=== PATIENT | male | born 1970 | race Caucasian/White ===

== ENCOUNTER 2023-04-24 20:22 | Emergency (ER) | payer OTHER, SELFPAY ==
[2023-04-24 20:23] VITALS: BP 150/90
--- NOTE | 2023-04-24 23:36 | ED.SKININJ ---
HPI-Injury
General
Chief Complaint: Head Injury
Source: patient
Exam Limitations: none
Time Seen by Provider: 04/24/23 20:48
Nursing documentation reviewed up to this point in time: agreed with
Travel History
Have you had any contact with someone who has COVID-19?: No
Do you have any symptoms of coronavirus? Fever > 100 degrees, chills, cough, shortness of breath, sore throat, loss of taste or smell, muscle aches, or headache?: No
History of Present Illness-Injury
Initial Injury comments:
Patient states he was attempting to hang up a clamp in his basement. Clamp fell and hit him on the left side of his forehead. No LOC. Sustained small lac to site. Injury occurred tonight. Brought self to ED for eval.
Past History
Past History
ED Past Medical History: None
ED Past Surgical History: None
Social History
Tobacco: Non-smoker
Alcohol: None
Drug: None
Living: with family
Review of Systems
Review of Systems
Allergies reviewed?: Yes
All Other Systems: ROS reviewed and negative except as documented in HPI and ROS
Constitutional: Reports no symptoms
Musculoskeletal: Reports no symptoms
Skin: Reports other (small laceration to left forehead)
Neurological: Reports no symptoms
Psychiatric: Reports no symptoms
Skin Exam
Laceration
Left Forehead:
Length in cm: 1
Orientation: vertical
Type of Laceration: simple
Any active bleeding?: no active bleeding
Distal skin color and temperature: normal-warm & good color
Normal distal neurovascular exam: Yes
Range of motion: full
Phy Exam
General Physical Exam
General Presentation: well appearing and no apparent distress
General age: appears stated age
General Skin: warm and dry
General Habitus: normal
General Mental: alert
Eye Exam
Eye Exam: PERRL, EOMI, conjunctiva normal and globe normal
Neurological Exam
Neurological Exam: alert, oriented x3, CN II-XII intact, no motor deficits, no sensory deficits, speech normal and normal gait
Ponca Coma Scale
Eye Opening: Spontaneous
Verbal Response: Oriented
Motor Response: Obeys Commands
GCS Total Score: 15
Mental
Mental Status: oriented to person, oriented to place, oriented to time and usual mental status
Cranial
Cranial Nerves: normal and no facial asymetry
Motor
Seizure Activity: none
Gait: normal
Tremors: none
Other Movement Disorders: none
Right upper extremity: 4
Right lower extremity: 4
Left upper extremity: 4
Left lower extremity: 4
Bilateral upper extremities: 4
Bilateral lower extremities: 4
Sensory
Sensory Exam: intact
Cerebellar
Cerebellar Function: normal finger to nose and normal Romberg test
Musculoskeletal Exam
Musculoskeletal Exam: full ROM and neuro vasc intact
Skin Exam
Skin Exam: normal color, warm/dry and no rash
Psychiatric Exam
Psychiatric Exam: normal mood/affect
Course
Vital Signs
Initial and Last Documented VS:
Initial Vital Signs
Temp Pulse Resp BP Pulse Ox
97.9 F 74 18 150/90 100
04/24/23 20:23 04/24/23 20:23 04/24/23 20:23 04/24/23 20:23 04/24/23 20:23
Last Documented Vital Signs
Temp Pulse Resp BP Pulse Ox
97.9 F 74 18 150/90 100
04/24/23 20:23 04/24/23 20:23 04/24/23 20:23 04/24/23 20:23 04/24/23 20:23
Procedures
Laceration Closure
Left Forehead:
Status of Wound: clean
Description of Wound Edges: sharp
Preparation: cleaned with saline
Revision/Debridement: routine- no revision
Wound exploration: explored to base- no FB
Type of Closure: Dermabond-skin glue
*Critical Care Note
Total Time (30-74mins, 75-104mins- exclusive of procedures): Not Applicable
ED Attending Note
-
Portions of this chart may have been created with voice recognition software.� Occasional wrong word or��sound alike� substitutions may have occurred due to the inherent limitations of voice recognition software.
Discharge Plan
Departure
Patient Disposition: Home (Routine Discharge)
Date of Disposition: 04/24/23
Time of Disposition: 21:08
Patient with high blood pressure during this ER visit?: No
Condition: Good
Covid-19: Not Applicable
Discharge Problem:
Head injury
Instructions: Laceration Repair With Glue (DC), Head Injury in Adults (DC), Contusion (DC)
Prescriptions:
No Action
naproxen sodium [Aleve] 220 MG tablet
220 mg PO PRN PRN (Reason: pain)
ibuprofen [Advil] 200 MG tablet
400 mg PO BID
epwaeawlj-[id number]-acetaminophen 295 ML liquid
15 ml PO PRN PRN (Reason: cold symptoms)
acetaminophen 650 MG/20.3 ML solution
15 ml PO Q4HPRN PRN (Reason: pain)
prednisone 10 MG tablet
10 mg PO .TAPER Qty: 30 0RF
Rx Instructions:
Take [id number], [id number], [id number], [id number].
cefadroxil [Duricef] 500 MG capsule
500 mg PO BID Qty: 20 0RF
Activity Restrictions/Additional Instructions:
Follow up with your famioy doctor
Interventions
Interventions:
*Risk Screen - Suicide Last Done: 04/24/23 20:23
*General Assessment Last Done: 04/24/23 21:08
*Neglect/Abuse Screening Last Done: 04/24/23 20:23
ED- Fall Risk Assessment Last Done: 04/24/23 21:23
*ED COVID-19 Vaccine History Last Done: 04/24/23 21:08
*Nursing Disposition Last Done: 04/24/23 21:23
ED- Neurological Assessment Last Done: 04/24/23 21:08
ED-Skin Assessment Last Done: 04/24/23 21:08
Discharge Date and Time
Discharge Date/Time: 04/24/23 21:25
== END 2023-04-24 21:25 | disposition home or self-care (01) ==
LOC: EMR 20:22
PROVIDERS: EMERGENCY PHYSICIAN Emergency Medicine; FAMILY PHYSICIAN Physician Assistant
DX: S09.90XA Unspecified injury of head, initial encounter (principal); S01.81XA Laceration without foreign body of other part of head, initial encounter; W20.8XXA Other cause of strike by thrown, projected or falling object, initial encounter
CPT/HCPCS: 99282; 12011

== ENCOUNTER → 2023-08-01 19:55 | Outpatient (REF) | payer OTHER, SELFPAY | LOC: MRI 19:55 | PROVIDERS: ATTENDING PHYSICIAN Neurological Surgery; FAMILY PHYSICIAN Physician Assistant | DX: D33.3 Benign neoplasm of cranial nerves (principal) | CPT/HCPCS: 70553; A9575 ==

== ENCOUNTER → 2024-03-29 13:15 | Outpatient (REF) | payer OTHER, SELFPAY | LOC: RAD 13:15 | PROVIDERS: ATTENDING PHYSICIAN Physician Assistant | DX: S29.8XXD Other specified injuries of thorax, subsequent encounter (principal); M25.552 Pain in left hip | CPT/HCPCS: 71101; 73502 ==

== ENCOUNTER 2024-08-27 15:13 | Outpatient (RCR) | payer OTHER, SELFPAY | END 2024-08-27 23:59 | disposition home or self-care (01) | LOC: RPT 15:13 | PROVIDERS: FAMILY PHYSICIAN Physician Assistant | DX: M25.552 Pain in left hip (principal); Z73.6 Limitation of activities due to disability; M62.81 Muscle weakness (generalized); X50.1XXD Overexertion from prolonged static or awkward postures, subsequent encounter | CPT/HCPCS: 97110; 97140; 97162 ==

== ENCOUNTER 2024-10-02 15:56 | Outpatient (RCR) | payer OTHER, SELFPAY | END 2024-10-02 23:59 | disposition home or self-care (01) | LOC: RPT 15:56 | PROVIDERS: FAMILY PHYSICIAN Physician Assistant | DX: M25.552 Pain in left hip (principal); Z73.6 Limitation of activities due to disability; M62.81 Muscle weakness (generalized); X50.1XXD Overexertion from prolonged static or awkward postures, subsequent encounter | CPT/HCPCS: 97110; 97112; 97140 ==